=== PATIENT | male | born 1945 | race Caucasian/White ===

== ENCOUNTER 2017-05-20 10:18 | Day surgery (SDC) | payer MEDICARE ==
[~2017-05-20] VITALS: Ht 172.7 cm; Wt 79.9 kg
[~2017-05-20 10:18] MED LIST: Aspir 8181 MG PO; CENTRUM COMPLE1 EACH PO; Coq-1030 MG; LOVA40; Saw Palmetto160 MG
[2017-05-20] MEDS ORDERED: ACYC400 (11:07)
== END 2017-05-20 12:58 | disposition home or self-care (01) ==
LOC: ORSCSDS 10:18
PROVIDERS: Internal Medicine Gastroenterology
PROC: 0DBL8ZX Excision of Transverse Colon, Via Natural or Artificial Opening Endoscopic, Diagnostic (ICD-10-PCS; principal; 2017-05-20 11:30)
PROC: 3E0H8GC Introduction of Other Therapeutic Substance into Lower GI, Via Natural or Artificial Opening Endoscopic (ICD-10-PCS; principal; 2017-05-20 11:30)
PROC: 0DBK8ZX Excision of Ascending Colon, Via Natural or Artificial Opening Endoscopic, Diagnostic (ICD-10-PCS; principal; 2017-05-20 11:30)
DX: Z12.11 Encounter for screening for malignant neoplasm of colon (principal); D12.2 Benign neoplasm of ascending colon; D12.3 Benign neoplasm of transverse colon; K64.8 Other hemorrhoids; Z86.010 Personal history of colon polyps; Z80.0 Family history of malignant neoplasm of digestive organs; Z87.891 Personal history of nicotine dependence; Z79.82 Long term (current) use of aspirin; Z79.899 Other long term (current) drug therapy
CPT/HCPCS: 88305

== ENCOUNTER 2018-06-05 08:51 | Day surgery (SDC) | payer MEDICARE ==
[~2018-06-05] VITALS: Ht 172.7 cm; Wt 73.9 kg
[~2018-06-05 08:51] MED LIST changes: +ACYC400
[2018-06-05] MEDS ORDERED: Lovastatin20 MG PO (10:03)
[2018-06-05] MEDS ORDERED: Saw Palmetto C1 EACH (10:04)
[2018-06-05] MEDS ORDERED: COQ1050 MG (10:04)
[2018-06-05] MEDS ORDERED: CENTRUM ADULTS1 EACH PO (10:05)
== END 2018-06-05 11:23 | disposition home or self-care (01) ==
LOC: ORSCSDS 08:51
PROVIDERS: Internal Medicine Gastroenterology
PROC: 0DBH8ZX Excision of Cecum, Via Natural or Artificial Opening Endoscopic, Diagnostic (ICD-10-PCS; principal; 2018-06-05 10:15)
DX: Z86.010 Personal history of colon polyps (principal); D12.0 Benign neoplasm of cecum; K64.8 Other hemorrhoids; K57.30 Diverticulosis of large intestine without perforation or abscess without bleeding; Z80.0 Family history of malignant neoplasm of digestive organs; Z87.891 Personal history of nicotine dependence
CPT/HCPCS: 88305; J7120

== ENCOUNTER 2021-08-29 09:57 | Day surgery (SDC) | payer MEDICARE ==
[~2021-08-29] VITALS: Ht 170.2 cm; Wt 98.0 kg
[~2021-08-29 09:57] MED LIST changes: +CENTRUM ADULTS1 EACH PO; +COQ1050 MG; +Lovastatin20 MG PO; +Saw Palmetto C1 EACH
[2021-08-29] MEDS ORDERED: TAMS.4ER (10:27)
--- NOTE | 2021-08-29 13:17 | NUR ---
08/29/21 1317 MINERVA CUEVAS PT A MOUTH BREATHER. HAD TO ASSIST WITH BREATHING/KEEP MOUTH CLOSED FOR MAXIMUM OXYGENATION.
== END 2021-08-29 12:33 | disposition home or self-care (01) ==
LOC: ORSCSDS 09:57
PROVIDERS: Internal Medicine Gastroenterology
PROC: 0DBK8ZX Excision of Ascending Colon, Via Natural or Artificial Opening Endoscopic, Diagnostic (ICD-10-PCS; principal; 2021-08-29 11:15)
PROC: 0DBH8ZX Excision of Cecum, Via Natural or Artificial Opening Endoscopic, Diagnostic (ICD-10-PCS; principal; 2021-08-29 11:15)
DX: Z12.11 Encounter for screening for malignant neoplasm of colon (principal); Z86.010 Personal history of colon polyps; Z80.0 Family history of malignant neoplasm of digestive organs; D12.0 Benign neoplasm of cecum; D12.2 Benign neoplasm of ascending colon; K64.8 Other hemorrhoids; K21.9 Gastro-esophageal reflux disease without esophagitis; Z79.899 Other long term (current) drug therapy; Z87.891 Personal history of nicotine dependence; Z79.82 Long term (current) use of aspirin
CPT/HCPCS: 88305; J2704; J7120